=== PATIENT | male | born 1970 | race Hispanic/Latino ===

== ENCOUNTER 2018-06-28 11:55 | Emergency (ER) | payer MEDICARE ==
[~2018-06-28] VITALS: Ht 185.4 cm; Wt 181.4 kg
--- OUTSIDE RECORDS SUMMARY | 2018-06-28 11:57 | XMS REPORT ---
Author Author [facility] Address Unknown Phone Unavailable Care Team Providers Care Stablehand Name Role Phone Unavailable Unavailable Problems This patient has no known problems. Allergies, Adverse Reactions, Alerts This patient has no known allergies or adverse reactions. Medications This patient has no known medications. Encounters Start Date/Time End Date/Time Encounter Type Admission Type Attending [facility] Care Department Encounter ID 2018-09-17 00:00:00 2018-09-17 00:00:00 Outpatient [facility] [id number] 2018-09-03 00:00:00 2018-09-03 00:00:00 Outpatient [facility] [id number] 2018-09-03 00:00:00 2018-09-03 00:00:00 Outpatient [facility] [id number] 2018-09-03 00:00:00 2018-09-03 00:00:00 Outpatient [facility] [id number] 2018-08-20 00:00:00 2018-08-20 00:00:00 Outpatient [facility] [id number] 2018-07-13 00:00:00 2018-07-13 00:00:00 Outpatient [facility] [id number] 2018-04-09 00:00:00 2018-04-09 00:00:00 Outpatient [facility] [id number] 2018-04-07 00:00:00 2018-04-07 00:00:00 Outpatient [facility] [id number] 2018-04-07 00:00:00 2018-04-07 00:00:00 Outpatient [facility] [id number] 2018-03-19 09:12:15 2018-03-19 09:12:15 Outpatient [facility] [id number] 2018-03-19 00:00:00 2018-03-19 00:00:00 Outpatient [facility] [id number] 2018-03-12 00:00:00 2018-03-12 00:00:00 Outpatient [facility] [id number] 2018-03-12 00:00:00 2018-03-12 00:00:00 Outpatient [facility] [id number] 2018-03-11 00:00:00 2018-03-11 00:00:00 Outpatient [facility] [id number] 2018-03-04 15:33:32 2018-03-04 15:33:32 Outpatient [facility] [id number] 2017-12-18 00:00:00 2017-12-18 00:00:00 Outpatient [facility] [id number] 2017-12-03 00:00:00 2017-12-03 00:00:00 Outpatient [facility] [id number] 2017-10-16 09:46:47 2017-10-16 09:46:47 Outpatient [facility] [id number] 2017-10-14 15:23:50 2017-10-14 15:23:50 Outpatient [facility] [id number] 2017-10-08 00:00:00 2017-10-08 00:00:00 Outpatient [facility] [id number] 2017-09-24 11:08:22 2017-09-24 11:08:22 Outpatient [facility] [id number] 2017-08-21 00:00:00 2017-08-21 00:00:00 Outpatient [facility] [id number] 2017-08-21 00:00:00 2017-08-21 00:00:00 Outpatient [facility] [id number] 2017-08-20 00:00:00 2017-08-20 00:00:00 Outpatient [facility] [id number] 2017-08-17 12:35:16 2017-08-17 12:35:16 Outpatient [facility] [id number] 2017-08-14 00:00:00 2017-08-14 00:00:00 Outpatient [facility] [id number] 2017-08-14 00:00:00 2017-08-14 00:00:00 Outpatient [facility] [id number] 2017-08-14 00:00:00 2017-08-14 00:00:00 Outpatient [facility] [id number] 2017-05-28 14:02:43 2017-05-28 14:02:43 Outpatient [facility] [id number] 2017-05-28 11:39:48 2017-05-28 11:39:48 Outpatient [facility] [id number] 2017-05-28 00:00:00 2017-05-28 00:00:00 Outpatient [facility] [id number] 2017-05-26 14:25:47 2017-05-26 14:25:47 Outpatient [facility] [id number] 2017-05-21 12:47:09 2017-05-21 12:47:09 Outpatient [facility] [id number] 2017-05-21 11:37:09 2017-05-21 11:37:09 Outpatient [facility] [id number] 2017-05-21 09:55:01 2017-05-21 09:55:01 Outpatient [facility] [id number] 2017-05-13 14:26:44 2017-05-13 14:26:44 Outpatient [facility] [id number] 2017-05-06 00:00:00 2017-05-06 00:00:00 Outpatient [facility] [id number] 2017-04-23 15:45:38 2017-04-23 15:45:38 Outpatient [facility] [id number] 2017-04-13 00:00:00 2017-04-13 00:00:00 Outpatient [facility] [id number] 2017-04-09 13:56:03 2017-04-09 13:56:03 Outpatient [facility] [id number] 2017-04-01 09:24:12 2017-04-01 09:24:12 Outpatient [facility] [id number] 2017-04-01 09:11:02 2017-04-01 09:11:02 Outpatient [facility] [id number] 2017-03-27 15:00:30 2017-03-27 15:00:30 Outpatient [facility] [id number] 2017-03-26 11:25:27 2017-03-26 11:25:27 Outpatient [facility] [id number] 2017-03-26 10:07:41 2017-03-26 10:07:41 Outpatient [facility] [id number] 2017-03-17 14:35:04 2017-03-17 14:35:04 Outpatient [facility] [id number] 2017-03-12 11:05:55 2017-03-12 11:05:55 Outpatient [facility] [id number]
[2018-06-28 12:23] LABS: BASOPHILS # (AUTO) 0.1 (0.0-0.1); BASOPHILS % 0.9 % (0.0-1.0); EOSINOPHILS # (AUTO) 0.8 (0.0-0.4); EOSINOPHILS % 11.3 % (0.0-6.0); HEMATOCRIT 40.2 % (38.2-49.6); HEMOGLOBIN 13.5 g/dL (14.0-18.0); LYMPHOCYTES # (AUTO) 1.8 (1.0-3.2); LYMPHOCYTES % 26.5 % (18.0-39.1); MEAN CORPUSCULAR HEMOGLOBIN 28.8 pg (28-32); MEAN CORPUSCULAR HGB CONC 33.6 g/dL (31-35); MEAN CORPUSCULAR VOLUME 85.7 fL (81-99); MONOCYTES # (AUTO) 0.5 (0.2-0.8); MONOCYTES % 7.4 % (4.4-11.3); NEUTROPHILS # (AUTO) 3.7 (2.1-6.9); NEUTROPHILS % 53.6 % (38.7-80.0); PLATELET COUNT 237 x10e3/uL (140-360); RED BLOOD COUNT 4.69 x10e6/uL (4.3-5.7); RED CELL DISTRIBUTION WIDTH 13.2 % (11.7-14.4)
[2018-06-28] MEDS: SODIUM CHLORIDE 0.9% 1000ML 1,000 ML IV SCH ×3 (12:39→13:41)
[2018-06-28 12:46] LABS: ALANINE AMINOTRANSFERASE 41 IU/L (0-55); ALBUMIN 3.3 g/dL (3.5-5.0); ALBUMIN/GLOBULIN RATIO 0.9 (0.8-2.0); ALKALINE PHOSPHATASE 73 IU/L (40-150); ANION GAP 15.9 mmol/L (8-16); BLOOD UREA NITROGEN 12 mg/dL (7-26); BUN/CREATININE RATIO 10 (6-25); CALCIUM 9.1 mg/dL (8.4-10.2); CARBON DIOXIDE 26 mmol/L (22-29); CHLORIDE 90 mmol/L (98-107); CREATININE, SERUM 1.26 mg/dL (0.72-1.25); EST GLOMERULAR FILTRATION RATE > 60 ML/MIN (60-); POTASSIUM 3.9 mmol/L (3.5-5.1); SODIUM 128 mmol/L (136-145)
[2018-06-28 12:49] LABS: GLUCOSE 600 mg/dL (74-118)
[2018-06-28 12:52] LABS: BILIRUBIN,URINE NEGATIVE (NEGATIVE); CLARITY,URINE SL CLOUDY (CLEAR); COLOR,URINE YELLOW (YELLOW); KETONES,URINE 1+ (NEGATIVE); LEUKOCYTE ESTERASE ,URINE NEGATIVE (NEGATIVE); NITRITE,URINE NEGATIVE (NEGATIVE); PROTEIN,URINE DIPSTICK NEGATIVE (NEGATIVE); URINE UROBILINOGEN 0.2 mg/dL (0.2 - 1)
[2018-06-28 13:00] LABS: EPITHELIAL CELLS,URINE FEW /LPF
[2018-06-28] MEDS ORDERED: ESIDRIX25 MG PO (13:17)
[2018-06-28] MEDS ORDERED: IBUPROFEN400 MG PO (13:17)
[2018-06-28] MEDS ORDERED: NEXIUM40 MG PO (13:17)
[2018-06-28] MEDS ORDERED: ZETIA10 MG PO (13:17)
[2018-06-28] MEDS ORDERED: METFORMIN HCL500 M1 PO (13:17)
[2018-06-28] MEDS ORDERED: LEVOTHYROXINE125 MCG PO (13:17)
[2018-06-28] MEDS ORDERED: PAROXETINE HCL40 MG PO (13:17)
[2018-06-28] MEDS ORDERED: VASOTEC10 MG PO (13:17)
[2018-06-28] MEDS ORDERED: BIKTARVY PO (13:17)
[2018-06-28] MEDS ORDERED: CRESTOR20 MG PO (13:17)
[2018-06-28] MEDS ORDERED: SODIUM CHLORIDE 0.9% 1000ML 1,000 ML IV ONE (13:30)
[2018-06-28] MEDS ORDERED: INSULIN LISPRO 100 UNIT/1 ML 3ML VIAL SQ ONE (15:10)
[2018-06-28] MEDS ORDERED: INSULIN REGULAR, HUMAN 100 UNIT/1 ML 3ML VIAL IV ONE (17:45)
[2018-06-28 18:29] VITALS: BP 123/81
== END 2018-06-28 18:40 | disposition home or self-care (01) ==
LOC: ER 11:55
DX: E11.65 Type 2 diabetes mellitus with hyperglycemia (principal); B20 Human immunodeficiency virus [HIV] disease
CPT/HCPCS: 36415; 80053; 81001; 82948; 85025; 87086; 99283; J1817; J7030